=== PATIENT | female | born 1990 | race Caucasian/White ===

== ENCOUNTER 2024-07-17 18:51 | Emergency (ER) | payer SELFPAY ==
[~2024-07-17] VITALS: Ht 165.1 cm; Wt 88.5 kg
[2024-07-17 18:57] VITALS: BP 138/66; PULSE 97; RESP 16; TEMP 36.8; O2SAT 98
[2024-07-17 19:10] VITALS: O2SAT 99
[2024-07-17 20:29] LABS: BASOPHILS % 0.7 % (0.0-2.0); EOSINOPHILS % 0.1 % (0.0-5.0); HEMATOCRIT. 40.6 % (36.0-48.0); LYMPHOCYTES % 25.8 % (20.0-50.0); MEAN CORPUSCULAR HEMOGLOBIN 32.3 pg (28.0-32.0); MEAN CORPUSCULAR HGB CONC 34.4 g/dL (31.0-37.0); MEAN CORPUSCULAR VOLUME 93.9 fL (81.0-99.0); MEAN PLATELET VOLUME 7.2 fl (7.4-10.4); MONOCYTES % 6.1 % (2.0-8.0); NEUTROPHILS % 67.3 % (40.0-76.0); PLATELET 322 x1000/uL (130-400); RED BLOOD CELL COUNT 4.32 mill/uL (4.2-5.4); RED CELL DISTRIBUTION WIDTH 14.8 % (11.6-14.6); WHITE BLOOD COUNT 14.8 x1000/uL (4.5-11.0)
[2024-07-17 20:36] LABS: CARBON DIOXIDE 29 mEq/L (21-32); CHLORIDE 105 mEq/L (98-107); POTASSIUM 3.8 mEq/L (3.5-5.1); SODIUM 142 mEq/L (136-145)
[2024-07-17 20:38] LABS: CALCIUM 9.1 mg/dL (8.7-10.4)
[2024-07-17 20:42] LABS: CREATININE 0.7 mg/dL (0.6-1.0)
[2024-07-17 20:43] LABS: GLUCOSE 118 mg/dL (70-105); UREA NITROGEN BLOOD 13 mg/dL (9-23)
[2024-07-17 20:44] LABS: HCG SCREEN NEGATIVE
[2024-07-17 21:30] LABS: CLARITY URINE CLEAR (CLEAR); COLOR URINE YELLOW (YELLOW); GLUCOSE URINE NEGATIVE (NEGATIVE); KETONES URINE NEGATIVE (NEGATIVE); LEUKOCYTE ESTERASE URINE NEGATIVE (NEGATIVE); NITRITE URINE NEGATIVE (NEGATIVE); OCCULT BLOOD URINE TRACE (NEGATIVE); PH URINE 6.5 (4.5-8.0); PROTEIN URINE NEGATIVE (NEGATIVE); SPECIFIC GRAVITY URINE 1.023 (1.005-1.030); UROBILINOGEN URINE 0.2 E.U./dL (0.2-1.0)
[2024-07-17 21:50] LABS: RBC URINE 0-2 /hpf (0-2); SQUAMOUS EPITHELIAL CELL URINE RARE /lpf (RARE/1+); WBC URINE NONE SEEN /hpf (0-2)
[2024-07-17 21:51] LABS: BACTERIA URINE NONE SEEN; CALCIUM OXALATE CRYSTALS URINE 1+ /lpf
[2024-07-18] MEDS ORDERED: ONDA-239 PO (01:01)
== END 2024-07-18 01:09 | disposition home or self-care (01) ==
LOC: ER 18:51
DX: R10.84 Generalized abdominal pain (principal); Z98.890 Other specified postprocedural states
CPT/HCPCS: 36415; 74176; 80048; 81003; 84703; 85025; 99284